=== PATIENT | female | born 1965 | race Caucasian/White ===

== ENCOUNTER → 2017-04-18 20:28 | Emergency (ER) | payer SELFPAY ==
[~2017-04-18 20:28] MED LIST: Ibuprofen TAB* 600 MG ONE; Ibuprofen TAB* 600 MG PO ONE
--- NOTE | 2017-04-18 20:54 | ED ---
Back Pain - HPI Summary HPI Summary: Pt here w/ fall backward while sitting on gliding bench. She did not hit her head and no LOC. She does report Rt shoulder pain, worse w/ movement, and mid back pain. No trouble breathing and pain is not worse w/ deep breath. Denies LEN[place] , change in vision, neck pain, photosensitivity, phonophobia, confusion, N/V, ab pain, numbness, tingling or weakness. No other injuries to report at this time. - History of Current Complaint Chief Complaint: EDBackInjuryPain Stated Complaint: FALL/BACK PAIN Time Seen by Provider: 04/18/17 20:52 Hx Obtained From: Patient Hx Last Menstrual Period: IRREG Pain Intensity: 7 - Allergies/Home Medications Allergies/Adverse Reactions: Allergies Allergy/AdvReac Type Severity Reaction Status Date / Time No Known Allergies Allergy Verified 10/30/16 22:16 PMH/Surg Hx/FS Hx/Imm Hx Previously Healthy: Yes Endocrine/Hematology History: Denies: Hx Anticoagulant Therapy, Hx Blood Disorders, Hx Diabetes, Hx Thyroid Disease Cardiovascular History: Reports: Hx Hypertension Respiratory History: Denies: Hx Asthma, Hx Chronic Obstructive Pulmonary Disease (COPD) GI History: Denies: Hx Ulcer - Cancer History Hx Chemotherapy: No Hx Radiation Therapy: No - Surgical History Surgery Procedure, Year, and Place: C section x1 Infectious Disease History: No Infectious Disease History: Denies: Hx Clostridium Difficile, Hx Hepatitis, Hx Human Immunodeficiency Virus (HIV), Hx of Known/Suspected MRSA, Hx Shingles, Hx Tuberculosis, Hx Known/ Suspected VRE, Hx Known/Suspected VRSA, History Other Infectious Disease, Traveled Outside the [place] in Last 30 Days - Family History Known Family History: Negative: Blood Disorder - Social History Occupation: Employed Full-time Alcohol Use: None Hx Substance Use: No Substance Use Type: Reports: None Smoking Status (MU): Former Smoker Type: Cigarettes Have You Smoked in the Last Year: No Review of Systems Constitutional: Negative Negative: Fatigue Eyes: Negative Negative: Photophobia, Blurred Vision, Diplopia ENT: Negative Negative: Epistaxis, Dental Pain Cardiovascular: Negative Negative: Chest Pain Respiratory: Negative Negative: Shortness Of Breath Gastrointestinal: Negative Negative: Abdominal Pain, Vomiting, Nausea Positive: no symptoms reported. Negative: incontinence Musculoskeletal: Other - see HPI Skin: Negative Negative: Bruising Neurological: Negative Negative: Headache, Weakness, Paresthesia, Numbness, Syncope, Slurred Speech Psychological: Normal All Other Systems Reviewed And Are Negative: Yes Physical Exam Triage Information Reviewed: Yes Vital Signs On Initial Exam: Initial Vitals Temp Pulse Resp BP Pulse Ox 98.7 F 85 16 137/75 99 04/18/17 20:41 04/18/17 20:41 04/18/17 20:41 04/18/17 20:41 04/18/17 20:41 Vital Signs Reviewed: Yes Appearance: Positive: Well-Appearing, No Pain Distress, Well-Nourished Skin: Positive: Warm, Dry - no erythema, no ecchymosis over back or shoulder Head/Face: Positive: Normal Head/Face Inspection - NTTP, no gross deformity Eyes: Positive: Normal, EOMI, WILLY, Conjunctiva Clear ENT: Positive: Hearing grossly normal Dental: Negative: Dental Fracture @ Neck: Positive: Supple, Nontender Respiratory/Lung Sounds: Positive: Clear to Auscultation, Breath Sounds Present. Negative: Subcutaneous Emphysema, Tracheal Deviation Cardiovascular: Positive: Normal, RRR, Pulses are Symmetrical in both Upper and Lower Extremities Abdomen Description: Positive: Nontender, Soft Bowel Sounds: Positive: Present Musculoskeletal: Positive: Strength/ROM Intact, Pain @ - thoracic spinous pp and paraspinal mm are TTP - no margarito crepitus or defromity appreciated; Rt shoulder w/ FROM - sore to move and humeral head TTP; FROM cervical spine and LE 's/lumbar spine w/o difficulty Neurological: Positive: Normal, Sensory/Motor Intact, Alert, Oriented to Person Place, Time, CN Intact II-III Psychiatric: Positive: Normal Diagnostics - Vital Signs Vital Signs Temp Pulse Resp BP Pulse Ox 04/18/17 20:41 98.7 F 85 16 137/75 99 - Laboratory Lab Statement: Any lab studies that have been ordered have been reviewed, and results considered in the medical decision making process. Back Pain Course/Dx - Course Course Of Treatment: Pt presents w/ falling backward from rocking/gliding bench. Sore in Rt shoulder and mid back. XR's reveal no acute injury here however pt may have sprained ligaments in these areas. Functionally, she is performing well. Discussed pain control and tissue healing. No s/sx of head/ neck injury. She will f/u w/ PCP. Reviewed danger s/sx of when to return to ED. - Diagnoses Provider Diagnoses: Fall from chair, Multiple sprains Discharge - Discharge Plan Condition: Stable Disposition: HOME Patient Education Materials: Muscle Strain (ED), Contusion in Adults (ED) Forms: *Work Release Referrals: Sayda Davis MD [Primary Care Provider] - Additional Instructions: You appear to have contusion and muscle strain since falling. It is advised that you ice your injuries and gently stretch to prevent stiffness. You may take ibuprofen alternating with acetaminophen for pain. You may also try topical analgesic rubs/patches (ie. briofreeze, bengay, salonpas, etc). Follow-up with PCP this week if pain persists or worsens. Call tomorrow to schedule an appointment.
--- NOTE | 2017-04-18 21:42 | RAD ---
INDICATION: Right shoulder pain COMPARISON: None. TECHNIQUE: 4 views of the right shoulder were obtained. FINDINGS: The adequately corticated bones are in normal alignment. Joint spaces appear maintained. No fracture, dislocation or focal bony abnormality is seen. IMPRESSION: Normal radiograph of the right shoulder. If the patient's symptoms persist, follow-up imaging is recommended.
--- NOTE | 2017-04-18 21:43 | RAD ---
INDICATION: Back pain COMPARISON: Chest x-ray dated May 11, 2014 TECHNIQUE: 3 views of the thoracic spine were obtained. FINDINGS: The vertebra are in normal alignment. No fracture is seen. Disc spaces appear maintained. . IMPRESSION: No evidence of fracture or subluxation.
[2017-04-18 22:25] VITALS: BP 154/85
== END | disposition home or self-care (01) ==
LOC: ED 20:28
DX: T14.8 Other injury of unspecified body region (principal); W19.XXXA Unspecified fall, initial encounter; Y92.9 Unspecified place or not applicable; Z87.891 Personal history of nicotine dependence; I10 Essential (primary) hypertension
CPT/HCPCS: 72070; 99282; A9270-GY

== ENCOUNTER 2018-06-29 22:44 | Inpatient (IN) | payer SELFPAY ==
[2018-06-29] MEDS ORDERED: NS 0.9% 1000 ML* 1,000 ML IV ONE (22:46)
[2018-06-29] MEDS ORDERED: Etomidate* 2 MG/ML 20 ML VIAL (40 MG) ONE (23:02)
[2018-06-29] MEDS ORDERED: Succinylcholine* 20 MG/ML 10 ML VIAL ONE (23:03)
[2018-06-29] MEDS ORDERED: Mannitol 25% (12.5 GM) 50 ML* 12.5 GM/50 ML VIAL IVPB ONE (23:07)
[2018-06-29] MEDS ORDERED: Labetalol IV* 5 MG/ML 20 ML VIAL IV PUSH ONE (23:11)
[2018-06-29] MEDS ORDERED: levETIRAcetam IV* 500 MG/5 ML VIAL ONE (23:33)
--- NOTE | 2018-06-29 23:42 | ED ---
Headache - HPI Summary HPI Summary: This is tatiana Christopher documenting for attending Dr. Estevan Jennings MD. Pt is 52 y/o F who is BIBA to ED. Complete HPI is unobtainable due to level 5 Caveat of altered mental status. EMS reports that her boyfriend called them due to pt having a sudden onset headache while she was in the shower and vomiting brown liquid. She lost consciousness while in the shower and she was unresponsive for a short time, but then she was able to put on a shirt though she has been AMS the whole time. Boyfriend reports to EMS that shes been having a lot of headaches lately and that shes been lethargic. He reports no alcohol or drug use. EMS also says that she is hypertensive. - History Of Current Complaint Stated Complaint: UNRESPONSIVE Time Seen by Provider: 06/29/18 22:48 Hx Obtained From: Family/Director Of Housing, EMS Hx From Patient Unobtainable Due To: Altered Mental Status Onset/Duration: Sudden Onset - Allergies/Home Medications Allergies/Adverse Reactions: Allergies Allergy/AdvReac Type Severity Reaction Status Date / Time No Known Allergies Allergy Verified 06/30/18 09:40 Home Medications: Home Medications Unobtainable 06/30/18 [History Confirmed 06/30/18] PMH/Surg Hx/FS Hx/Imm Hx Infectious Disease History: Denies: Traveled Outside the [place] in Last 30 Days - Additional Comments History Additional Comments: PMHx, FHx, PSHx unobtainable due to level 5 caveat of AMS. Review of Systems - ROS Summary Review of Systems Summary: Complete ROS unobtainable due to level 5 caveat of Altered mental status Positive: Vomiting Positive: Headache All Other Systems Reviewed And Are Negative: Yes Physical Exam - Summary Physical Exam Summary: VITAL SIGNS: Reviewed. GENERAL: Patient is a well-developed and nourished female who is lying comfortable in the stretcher. Patient is not in any acute respiratory distress. HEAD AND FACE: No signs of trauma. No ecchymosis, hematomas or skull depressions. No sinus tenderness. EYES: pupils are equal and rounded, EOMI x 2, No injected conjunctiva, no nystagmus. EARS: Hearing grossly intact. Ear canals and tympanic membranes are within normal limits. MOUTH: Oropharynx within normal limits. NECK: Supple, trachea is midline, no adenopathy, no JVD, no carotid bruit, no c- spine tenderness, neck with full ROM. CHEST: Vomit on chest. Symmetric, no tenderness at palpation LUNGS: Clear to auscultation bilaterally. No wheezing or crackles. CVS: Regular rate and rhythm, S1 and S2 present, no murmurs or gallops appreciated. ABDOMEN: Soft, non-tender. No signs of distention. No rebound no guarding, and no masses palpated. Bowel sounds are normal. EXTREMITIES: Moves extremities nonpurposefully. FROM in all major joints, no edema, no cyanosis or clubbing. NEURO: Alert but incoherent. Does not follow commands. SKIN: Dry and warm Triage Information Reviewed: Yes Vital Signs Reviewed: Yes Procedures - Intubation Time of Intubation: 23:20 Intubation Method: orotracheal Tube Size (cm): 7.5 Medications: Succinylcholine - Atomidate Breath Sounds after Intubation: equal Intubation Complications: no complications Post Intubation Xray: Yes Diagnostics - Laboratory Result Diagrams: 06/30/18 15:40 06/30/18 15:40 Lab Statement: Any lab studies that have been ordered have been reviewed, and results considered in the medical decision making process. - Radiology CXR Radiology Interpretation Completed By: ED Physician - ETT level of clavicle. No acute pathology. Pending official report. - CT CT Head w/o IV contrast CT Interpretation Completed By: Radiologist - IMPRESSION: 1. Left peripheral parenchymal hematoma involving the left temporal and occipital lobe in which there is a significant subfalcine shift from left to right by 1.2 cm. 2. Left subdural hematoma involving the left anterior and middle cranial fossa. There are both acute and subacute components. 3. Effacement of the left lateral ventricle with a dilated right temporal horn and occipital horn consistent with a trapped right lateral ventricle. 4. Decrease in the density of the pontine isthmus and mid brain. ED Physician reviewed this report. - EKG 00:56 Cardiac Rate: NL - 76 bpm EKG Interpretation: Normal axis. Normal interval. No ischemic changes. Headache Course/Dx - Course Course Of Treatment: Pt is 52 y/o F who is BIBA to ED. Level 5 Caveat due to AMS. EMS reports that boyfriend called them due to pt having a sudden onset headache while she was in the shower and vomiting brown liquid. She lost consciousness while in the shower and she was unresponsive for a short time, but then she was able to put on a shirt, but still AMS the whole time. Boyfriend reports to EMS that shes been having a lot of headaches lately and that shes been lethargic. He reports no alcohol or drug use. EMS also says that she is hypertensive. Physical exam revealed that she was alert, incoherent , not able to follow commands, had vomit on her chest, pupils were equal and rounded, and she moved extremities non-purposefully. GCS of 9. Pt was sedated with propofol. Pt was rushed to CAT scan immediately which showed intracranial hemorrhage. Head CT showed left peripheral parenchymal hematoma involving the left temporal and occipital lobe in which there is a significant subfalcine shift from left to right by 1.2 cm, left subdural hematoma involving the left anterior and middle cranial fossa, effacement of the left lateral ventricle with a dilated right temporal horn and occipital horn consistent with a trapped right lateral ventricle, and a decrease in the density of the pontine isthmus and mid brain. ED Physician reviewed this report and agrees. Pt was intubated around 23:20 with 7.5 cm tube with orotracheal method and no complications. EKG at 00:56 shows normal axis, normal interval, and no ischemic changes at 76 bpm. CXR showed ETT level of clavicle and no acute pathology, pending official report. Lactic acid levels were 5.8 mmol/L. In the ED course pt was given Propofol, fluids, Mannitol, Labetalol, Keppra, and Tylenol. Spoke with Dr. Plaza who recommended pt go to OR and he came down to see pt. At 01:00 Dr. Plaza had a long discussion with pts daughter and boyfriend who decided they dont want pt to go for surgery and instead want her admitted to ICU. At 01 :30 pts family decided to make pt DNR and pts daughter Di Dukes signed DNR form. Pt diagnosed with intracranial hemorrhage and guarded. She was admitted to ICU. - Diagnoses Provider Diagnoses: Intracranial hemorrhage, In guarded condition - Physician Notifications Discussed Care Of Patient With: Gilda Plaza Time Discussed With Above Provider: 23:11 Instructed by Provider To: Other - Recommended pt go to OR and he came down to see pt. at 01:00 Dr. Plaza said he had a long discussion with pt's daughter and boyfriend who decided they don't want pt to go for surgery and instead want her admitted to ICU. - Critical Care Time Critical Care Time: 30-74 min Discharge - Sign-Out/Discharge Documenting (check all that apply): Patient Departure - Admit - Discharge Plan Condition: Disposition: ADMITTED TO [facility]
[2018-06-29] MEDS ORDERED: levETIRAcetam IV* 1,000 MG in NS 0.9% 100 ML* 100 ML IVPB SCH (23:45)
[2018-06-29] MEDS ORDERED: Propofol* 500 MG/50 ML BTL IV SCH (23:45)
[2018-06-29 23:52] LABS: ABS Basophils 0 10^3/ul (0-0.2); ABS Eosinophils 0.1 10^3/ul (0-0.6); ABS Lymphocytes 3.3 10^3/ul (1.0-4.8); ABS Neutrophils 16.1 10^3/ul (1.5-7.7); ABS Nucleated RBC 0 10^3/ul; Eosinophil % 0.6 % (0-6); Hematocrit 43 % (35-47); Hemoglobin 14.4 g/dl (12.0-16.0); Lymphocyte % 15.8 % (25-47); Mean Corpuscular HGB Conc 34 g/dl (31-36); Mean Corpuscular Hemoglobin 29 pg (27-31); Mean Corpuscular Volume 85 fL (80-97); Mean Platelet Volume 9.4 um3 (7.4-10.4); Nucleated Red Blood Cells % 0.1; Platelet Count 407 10^3/ul (150-450); Red Blood Count 5.05 10^6/ul (4.00-5.40); Red Cell Distribution Width 14 % (10.5-15); White Blood Count 20.6 10^3/ul (3.5-10.8)
[2018-06-30] MEDS ORDERED: Labetalol IV* 5 MG/ML 20 ML VIAL ONE
[2018-06-30 00:08] LABS: EGFR Non-African American 76.1 (>60)
[2018-06-30 00:16] LABS: Urine Appearance Clear; Urine Blood 2+ (Negative); Urine Color Straw; Urine Ketones Trace (Negative); Urine Protein 2+(100 mg/dL) (Negative); Urine Red Blood Cell 3+(>10/hpf) (Absent); Urine Specific Gravity 1.011 (1.010-1.030); Urine Urobilinogen Negative (Negative); Urine White Blood Cell Trace(0-5/hpf) (Absent)
[2018-06-30] MEDS ORDERED: Mannitol 25% (12.5 GM) 50 ML* 12.5 GM/50 ML VIAL ONE (00:20)
[2018-06-30] MEDS ORDERED: Thrombin 5,000 UNITS* 1 APPLIC KIT - topical use - TOPICAL ONE (00:20)
[2018-06-30] MEDS ORDERED: Bacitracin IV* 50,000 UNITS INJ ONE (00:20)
[2018-06-30] MEDS ORDERED: Lidocain 1% EPI 1:100,000 * 30 ML MDV ONE (00:20)
[2018-06-30 00:23] LABS: INR 0.9 (0.77-1.02)
[2018-06-30] MEDS ORDERED: Bacitracin OINTMENT* 0.5% 0.5 oz TUBE ONE (00:38)
[2018-06-30] MEDS ORDERED: Iodixanol* (CONTRAST) 320 MG/ML 100 ML SDV IV ONE (00:39)
--- NOTE | 2018-06-30 01:52 | HP ---
H&P (Free Text) History and Physical: PCP: none Date/Time: 06/30/2018 0125 CC: headache, lethargy HPI: Mrs Castellanos is a 52YO female presenting via EMS from home where she was in the shower and experienced sudden onset of headache & N/V with subsequent syncope. She did rouse and was able to assist getting dressed before becoming lethargic and unresponsive. She was intubated on arrival and code perea protocol followed. CT head WO was read as parenchymal ICH with significant shift & subdural hematoma. Zacarias Plaza MD neurosurgery was consulted and offered surgery, but based on the anticipated post-op survival and substantial disability, her family opted to forego surgery and make her a DNR. She was given 12.5g mannitol IV, loaded with 1g levetiracetam, & PRN labetalol for HTN. I have discussed with her daughter, Di, what her mother's wishes would have been regarding living with the anticipated significant disability. We discussed continued medical management to support her vital organs, potential organ donation should she progress to brain , and the option for terminal extubation. PMedHx headaches HTN Medications: unknown NKDA PSurgHx none known SocHx: former smoker, rare alcohol, no recreational drugs; lives with boyfriend ; DNR code status FamHx: adopted, unknown ROS: as above, otherwise reviewed and all were negative vitals: Vital Signs Temp 36.8 C 06/29/18 22:45 Pulse 96 06/30/18 01:03 Resp 14 06/29/18 22:45 BP 170/87 06/30/18 01:03 Pulse Ox 99 06/30/18 01:03 Intake & Output 06/29/18 06/29/18 06/30/18 11:59 23:59 11:59 Weight 73.936 kg Constitutional: NAD, normally developed, overweight white female HEENM: atraumatic; sclera/conjunctiva: anicteric/clear; fundi: ; auricles: normal; oropharynx: intubated, mucosa moist Neck: soft tissue: no mass; thyroid: normal Pulmonary: clear to auscultation bilaterally, good aeration, no accessory muscle use CV: RR/RR, normal S1S2, no carotid bruit, no jugular venous distention, 2+ B DP/ PT, no edema Abdominal: soft, non-distended, non-tender, no rebound/guarding/rigidity, normoactive bowel sounds, no hepatosplenomegaly or masses, no costovertebral angle tenderness Musculoskeletal: general: grossly intact; gait: currently non-ambulatory Integumental: normal appearance and texture Neurological cranial nerves II: unable to assess visual reyes III/IV/: light reflex, unable to assess EOMI, R pupil 3mm/fixed, L pupil 5mm/ fixed V: absent corneal reflex, unable to assess facial sensation or mastication VII: intact facial symmetry, unable to assess eye clench VIII: unable to assess hearing IX/X: unable to assess palatal motion, gag reflex, or dysarthria XI: unable to assess shoulder shrug, no trapezius atrophy XII: unable to assess tongue protrusion & voice articulation motor: decerebrate posturing B LUE: unable to assess RUE: unable to assess LLE: unable to assess RLE: unable to assess coordination finger/nose: unable to assess heal/pedraza: unable to assess dysdiadochokinesia: unable to assess sensory crude touch: unable to assess pinprick: unable to assess vibration: unable to assess proprioception: unable to assess DTRs biceps: 1+ B triceps: 1+ B brachioradialis: 1+ B patellar: 2+ B, brisk Achilles: trace B Babinski: upgoing B Psychiatric orientation: GCS 3 affect: obtunded mood: acquiescent eye contact: absent content: absent memory: unable to assess responses: absent insight: absent Testing: Lab Results 06/29/18 06/29/18 06/29/18 Range/Units 23:15 23:15 23:15 WBC 20.6 H (3.5-10.8) 10^3/ul RBC 5.05 (4.00-5.40) 10^6/ul Hgb 14.4 (12.0-16.0) g/dl Hct 43 (35-47) % MCV 85 (80-97) fL MCH 29 (27-31) pg MCHC 34 (31-36) g/dl RDW 14 (10.5-15) % Plt Count 407 (150-450) 10^3/ul MPV 9.4 (7.4-10.4) um3 Neut % (Auto) 78.5 (38-83) % Lymph % (Auto) 15.8 L (25-47) % Brantley % (Auto) 4.9 (0-7) % Eos % (Auto) 0.6 (0-6) % Baso % (Auto) 0.2 (0-2) % Absolute Neuts (auto) 16.1 H (1.5-7.7) 10^3/ul Absolute Lymphs (auto) 3.3 (1.0-4.8) 10^3/ul Absolute Monos (auto) 1.0 H (0-0.8) 10^3/ul Absolute Eos (auto) 0.1 (0-0.6) 10^3/ul Absolute Basos (auto) 0 (0-0.2) 10^3/ul Absolute Nucleated RBC 0 10^3/ul Nucleated RBC % 0.1 INR (Anticoag Therapy) 0.90 (0.77-1.02) APTT 29.7 (26.0-36.3) seconds Patient Temperature ABG pH (7.35-7.45) ABG pH (Temp Correct) ABG pCO2 (35-45) mmHg ABG pCO2 (Temp Corrct ABG pO2 (80-100) mmHg ABG pO2 (Temp Correct ABG HCO3 (19-31) mmol/L ABG O2 Saturation (95-98) % ABG Base Excess (-2.0-2.0) Respiration Rate Ventilator Type Vent Mode Inspiratory Time PEEP Pressure Support Pressure Control EPAP IPAP BiPAP Sodium (135-145) mmol/L Potassium Chloride (101-111) mmol/L Carbon Dioxide (22-32) mmol/L Anion Gap (2-11) mmol/L BUN (6-24) mg/dL Creatinine (0.51-0.95) mg/dL Est GFR ( Amer) (>60) Est GFR (Non-Af Amer) (>60) BUN/Creatinine Ratio (8-20) Glucose (70-100) mg/dL Lactic Acid (0.5-2.0) mmol/L Calcium (8.6-10.3) mg/dL Total Bilirubin (0.2-1.0) mg/dL AST ALT (7-52) U/L Alkaline Phosphatase (34-104) U/L Troponin I (<0.04) ng/mL Total Protein (6.4-8.9) g/dL Albumin (3.2-5.2) g/dL Globulin (2-4) g/dL Albumin/Globulin Ratio (1-3) Triglycerides mg/dL Cholesterol mg/dL LDL Cholesterol mg/dL LDL Cholesterol Direct mg/dL HDL Cholesterol mg/dL Urine Color Straw Urine Appearance Clear Urine pH 7.0 (5-9) Ur Specific Himrod 1.011 (1.010-1.030) Urine Protein 2+(100 mg/dl) A (Negative) Urine Ketones Trace A (Negative) Urine Blood 2+ A (Negative) Urine Nitrate Negative (Negative) Urine Bilirubin Negative (Negative) Urine Urobilinogen Negative (Negative) Ur Leukocyte Esterase Negative (Negative) Urine WBC (Auto) Trace(0-5/hpf) (Absent) Urine RBC (Auto) 3+(>10/hpf) A (Absent) Urine Bacteria Absent (Absent) Urine Glucose 2+(150 mg/dl) A (Negative) Blood Type Antibody Screen Crossmatch 06/29/18 06/29/18 06/29/18 Range/Units 23:15 23:15 23:15 WBC (3.5-10.8) 10^3/ul RBC (4.00-5.40) 10^6/ul Hgb (12.0-16.0) g/dl Hct (35-47) % MCV (80-97) fL MCH (27-31) pg MCHC (31-36) g/dl RDW (10.5-15) % Plt Count (150-450) 10^3/ul MPV (7.4-10.4) um3 Neut % (Auto) (38-83) % Lymph % (Auto) (25-47) % Brantley % (Auto) (0-7) % Eos % (Auto) (0-6) % Baso % (Auto) (0-2) % Absolute Neuts (auto) (1.5-7.7) 10^3/ul Absolute Lymphs (auto) (1.0-4.8) 10^3/ul Absolute Monos (auto) (0-0.8) 10^3/ul Absolute Eos (auto) (0-0.6) 10^3/ul Absolute Basos (auto) (0-0.2) 10^3/ul Absolute Nucleated RBC 10^3/ul Nucleated RBC % INR (Anticoag Therapy) (0.77-1.02) APTT (26.0-36.3) seconds Patient Temperature ABG pH (7.35-7.45) ABG pH (Temp Correct) ABG pCO2 (35-45) mmHg ABG pCO2 (Temp Corrct ABG pO2 (80-100) mmHg ABG pO2 (Temp Correct ABG HCO3 (19-31) mmol/L ABG O2 Saturation (95-98) % ABG Base Excess (-2.0-2.0) Respiration Rate Ventilator Type Vent Mode Inspiratory Time PEEP Pressure Support Pressure Control EPAP IPAP BiPAP Sodium 134 L (135-145) mmol/L Potassium TNP Chloride 99 L (101-111) mmol/L Carbon Dioxide 20 L (22-32) mmol/L Anion Gap 15 H (2-11) mmol/L BUN 15 (6-24) mg/dL Creatinine 0.79 (0.51-0.95) mg/dL Est GFR ( Amer) 92.1 (>60) Est GFR (Non-Af Amer) 76.1 (>60) BUN/Creatinine Ratio 19.0 (8-20) Glucose 206 H (70-100) mg/dL Lactic Acid 5.8 H* (0.5-2.0) mmol/L Calcium 8.8 (8.6-10.3) mg/dL Total Bilirubin 0.30 (0.2-1.0) mg/dL AST TNP ALT 10 (7-52) U/L Alkaline Phosphatase 100 (34-104) U/L Troponin I 0.01 (<0.04) ng/mL Total Protein 8.2 (6.4-8.9) g/dL Albumin 4.3 (3.2-5.2) g/dL Globulin 3.9 (2-4) g/dL Albumin/Globulin Ratio 1.1 (1-3) Triglycerides 677 mg/dL Cholesterol 236 mg/dL LDL Cholesterol mg/dL LDL Cholesterol Direct 114 mg/dL HDL Cholesterol 34.0 mg/dL Urine Color Urine Appearance Urine pH (5-9) Ur Specific Himrod (1.010-1.030) Urine Protein (Negative) Urine Ketones (Negative) Urine Blood (Negative) Urine Nitrate (Negative) Urine Bilirubin (Negative) Urine Urobilinogen (Negative) Ur Leukocyte Esterase (Negative) Urine WBC (Auto) (Absent) Urine RBC (Auto) (Absent) Urine Bacteria (Absent) Urine Glucose (Negative) Blood Type O Positive Antibody Screen Negative Crossmatch See Detail 06/30/18 06/30/18 Range/Units 00:05 01:03 WBC (3.5-10.8) 10^3/ul RBC (4.00-5.40) 10^6/ul Hgb (12.0-16.0) g/dl Hct (35-47) % MCV (80-97) fL MCH (27-31) pg MCHC (31-36) g/dl RDW (10.5-15) % Plt Count (150-450) 10^3/ul MPV (7.4-10.4) um3 Neut % (Auto) (38-83) % Lymph % (Auto) (25-47) % Brantley % (Auto) (0-7) % Eos % (Auto) (0-6) % Baso % (Auto) (0-2) % Absolute Neuts (auto) (1.5-7.7) 10^3/ul Absolute Lymphs (auto) (1.0-4.8) 10^3/ul Absolute Monos (auto) (0-0.8) 10^3/ul Absolute Eos (auto) (0-0.6) 10^3/ul Absolute Basos (auto) (0-0.2) 10^3/ul Absolute Nucleated RBC 10^3/ul Nucleated RBC % INR (Anticoag Therapy) (0.77-1.02) APTT (26.0-36.3) seconds Patient Temperature Not Reportable ABG pH 7.40 (7.35-7.45) ABG pH (Temp Correct) Not Reportable ABG pCO2 32 L (35-45) mmHg ABG pCO2 (Temp Corrct Not Reportable ABG pO2 201 H (80-100) mmHg ABG pO2 (Temp Correct Not Reportable ABG HCO3 21.8 (19-31) mmol/L ABG O2 Saturation 98.0 (95-98) % ABG Base Excess -4.0 L (-2.0-2.0) Respiration Rate 20 Ventilator Type 500 Vent Mode Cmv Inspiratory Time Not Reportable PEEP 5 Pressure Support Not Reportable Pressure Control Not Reportable EPAP Not Reportable IPAP Not Reportable BiPAP Not Reportable Sodium (135-145) mmol/L Potassium 3.3 L Chloride (101-111) mmol/L Carbon Dioxide (22-32) mmol/L Anion Gap (2-11) mmol/L BUN (6-24) mg/dL Creatinine (0.51-0.95) mg/dL Est GFR ( Amer) (>60) Est GFR (Non-Af Amer) (>60) BUN/Creatinine Ratio (8-20) Glucose (70-100) mg/dL Lactic Acid (0.5-2.0) mmol/L Calcium (8.6-10.3) mg/dL Total Bilirubin (0.2-1.0) mg/dL AST 19 ALT (7-52) U/L Alkaline Phosphatase (34-104) U/L Troponin I (<0.04) ng/mL Total Protein (6.4-8.9) g/dL Albumin (3.2-5.2) g/dL Globulin (2-4) g/dL Albumin/Globulin Ratio (1-3) Triglycerides mg/dL Cholesterol mg/dL LDL Cholesterol mg/dL LDL Cholesterol Direct mg/dL HDL Cholesterol mg/dL Urine Color Urine Appearance Urine pH (5-9) Ur Specific Himrod (1.010-1.030) Urine Protein (Negative) Urine Ketones (Negative) Urine Blood (Negative) Urine Nitrate (Negative) Urine Bilirubin (Negative) Urine Urobilinogen (Negative) Ur Leukocyte Esterase (Negative) Urine WBC (Auto) (Absent) Urine RBC (Auto) (Absent) Urine Bacteria (Absent) Urine Glucose (Negative) Blood Type Antibody Screen Crossmatch ECG, personally reviewed: NSR rate 76, no ischemia; no comparison CXR, personally reviewed: intubated w/ ET tube in good position, no acute process CT brain WO, personally reviewed: IMPRESSION: 1. Left peripheral parenchymal hematoma involving the left temporal and occipital lobe in which there is a significant subfalcine shift from left to right by 1.2cm 2. Left subdural hematoma involving the left anterior and middle cranial fossa. There are both acute and subacute components. 3. Effacement of the left lateral ventricle with a dilated right temporal horn and occipital horn consistent with a trapped right lateral ventricle. 4. Decrease in the density of the pontine isthmus and mid brain. Impression: 52F presenting with lethargy after onset of headache found to have a catastrophic intra-cranial hemorrhage, family declining surgical intervention ; call out to game protector Neurologic catastrophic intra-cranial hemorrhage : family declined neurosurgical intervention, Zacarias Plaza MD consulted in ED : support blood pressure & profusion : propofol sedation as needed : anticipate brain evaluation 24-72H : possible organ donation, [place] contacted : seizure precautions : loaded with 1g levetiracetam in ED, continue 500mg IV BID Cardiovascular episodic bradycardia : dopamine GTT, if needed : maintain systolic <180 & MAP >65 Pulmonary acute respiratory failure 2nd ICH : mechanical ventilation Infectious Disease No infectious burden suspected Gastroenterology GI prophylaxis : IV pantoprazole Renal No acute issues : eller for accurate renal monitoring/I&Os & prevention of skin breakdown Lines : ET : OG : L anticubial IV : R forearm IV : R wrist IV : eller Admission Rational: inpatient for catastrophic ICH management in ICU, possible organ donation DVTp: SCDs, no anticoagulation in setting of acute hemorrhage Code Status: DNR HCP: Di pitts Critical Care time: 120minutes with >50% spent at the bedside obtaining a history, performing the examination, advising of diagnosis & treatment options along with risks/benefits/reasoning; remainder spent discussing with ER MD, reviewing labs and radiology exams
[2018-06-30] MEDS ORDERED: Labetalol IV* 5 MG/ML 20 ML VIAL IV PUSH ONE ×3 (02:17→02:21)
[2018-06-30] MEDS ORDERED: Acetaminophen SUPP* 650 MG SUPP PR PRN (02:32)
[2018-06-30] MEDS ORDERED: NS 0.9% 1000 ML* 1,000 ML IV SCH (02:45)
[2018-06-30] MEDS ORDERED: Propofol* 100 ML IV SCH (03:00)
[2018-06-30] MEDS ORDERED: hydrALAZINE IV* 20 MG/ML VIAL IV PRN (04:05)
[2018-06-30] MEDS ORDERED: hydrALAZINE IV* 20 MG/ML VIAL ONE (04:18)
[2018-06-30 05:09] LABS: Hematocrit 41 % (35-47); Hemoglobin 13.8 g/dl (12.0-16.0); Mean Corpuscular HGB Conc 34 g/dl (31-36); Mean Corpuscular Hemoglobin 29 pg (27-31); Mean Corpuscular Volume 84 fL (80-97); Mean Platelet Volume 8.4 um3 (7.4-10.4); Platelet Count 328 10^3/ul (150-450); Red Blood Count 4.83 10^6/ul (4.00-5.40); Red Cell Distribution Width 14 % (10.5-15); White Blood Count 23.4 10^3/ul (3.5-10.8)
[2018-06-30 05:10] LABS: ABS Basophils 0 10^3/ul (0-0.2); ABS Eosinophils 0 10^3/ul (0-0.6); ABS Lymphocytes 1.6 10^3/ul (1.0-4.8); ABS Monocytes 1.3 10^3/ul (0-0.8); ABS Neutrophils 20.4 10^3/ul (1.5-7.7); ABS Nucleated RBC 0 10^3/ul
[2018-06-30 05:25] LABS: EGFR Non-African American 82.1 (>60)
[2018-06-30 05:47] LABS: Eosinophil % 0.1 % (0-6); Lymphocyte % 6.9 % (25-47); Nucleated Red Blood Cells % 0
[2018-06-30] MEDS: Chlorhexidine MOUTHWASH 0.12%* 15 ML UDC TOPICAL SCH ×4 (07:34→16:27)
--- NOTE | 2018-06-30 08:15 | CONS ---
CONSULTATION NOTE: DATE OF CONSULT: 06/30/18 HISTORY OF PRESENT ILLNESS: The patient is a very pleasant 52-year-old female who was seen in the emergency room at the request of the emergency room physician because of CT scan finding consistent with a large left parietooccipital intracranial hemorrhage with left subdural hematoma and midline shift. The patient was reported have episodes of headache prior to her transfer to the emergency room. She started having excessive nausea and vomiting and gradually became less responsive. She was transferred to the emergency room by ambulance. On arrival, she was found to be hypertensive as well as moving all extremities non-purposely. She was intubated and she was found to have a large left-sided intraparenchymal hematoma with midline shift. The patient's history was obtained from the patient's records as well as the patient's significant other who accompanied her at this visit; shortly her daughter and son-in-law came to the emergency room. The patient is working at [employer] and she has other children. PAST MEDICAL HISTORY: Largely unknown. Per the patient's daughter, the patient has not seen a physician for several years. PAST SURGICAL HISTORY: Unknown. MEDICATIONS: The patient reportedly does not take any medications. ALLERGIES: Unknown. SOCIAL HISTORY: Tobacco: Negative. Alcohol: Negative. Recreational drug use : Negative. PHYSICAL EXAMINATION: The patient is intubated. She was given propofol earlier , but was held for the examination. The patient does not open her eyes to verbal or painful stimuli. She is intubated. She does not follow commands. She would extend upper and lower extremities to pain. She grimaces to pain on all extremities. Her pupils are 6 mm on the left, 4 mm on the right and sluggish. She does have cornea and gag reflex, both of them are weak. DIAGNOSTIC STUDIES/LAB DATA: The patient had a CT scan of the brain revealing a large intraparenchymal hematoma at the left parietooccipital lobe and also a component of left temporal lobe. The patient had a left frontotemporal subdural hematoma with significant [id number] midline shift, compression of the left ventricle of the cerebrum and the patient also has a right lateral ventricle. The patient also has hypodense signal at the area of her russ. The patient also had a CTA of the brain with similar findings, without obvious arteriovenous malformation. ASSESSMENT: The patient is a pleasant 52-year-old right-handed female with altered mental status, with a large left intraparenchymal hematoma and left subdural hematoma. PLAN: The patient at this point has significant amount of midline shift and signs of increased intracranial pressure. She was given mannitol in the emergency room. We discussed with the patient's family, with her daughter and son-in-law, as well as her significant other regarding surgical and nonsurgical options, offering as a first option a surgical decompressive craniectomy with evacuation of intracranial hemorrhage. The patient' family understood the risks and benefits of the procedure as well as possible expectations, limitations, possible complication of the procedure, understanding that her prognosis is very poor even with surgery and possible clinical outcome without surgical intervention. The patient's ICH score is 4 that carries a mortality of 72%. Because of the patient's condition and her wishes, the family decided against surgical intervention in the form of craniotomy/craniectomy or placement of ventriculostomy. Understanding of possible outcome of the decision regarding permanent neurological deficits and , the patient's prognosis is going to be poor, family decided to go ahead with medical management for now and the patient will be admitted to intensive care unit. I will prophylaxis for 7 days, avoid hyponatremia and avoid hypotension, and medical management of the patient's condition. Full instructions were given to the patient's family. We discussed in detail regarding possible grave outcome. Thank you for allowing us to participate in the care of this patient. Please do not hesitate to contact our office in case you have any further questions or concerns regarding the care of this patient. [id number]/[facility] #: [id number] ZION
[2018-06-30] MEDS ORDERED: niCARdipine 0.1MG/ML IVPREMIX* 20 MG/200 ML BAG ONE (08:20)
--- NOTE | 2018-06-30 08:21 | RAD ---
Indication: Respiratory failure. Single frontal portable view of the chest done at 0056 hours demonstrates no mediastinal shift. Heart is of normal size and configuration. ET tube is at the level of the aortic arch. Lung reyes are clear. IMPRESSION: No active cardiopulmonary disease is noted. R0
--- NOTE | 2018-06-30 08:46 | RAD ---
Indication: Intracranial hemorrhage. Contrast: Administered 80.2 ml of VISAPAQUE 320 mg/ml CTA of the neck was performed after IV contrast administration. CTA of the head was also performed. Coronal, sagittal and 3-D reconstructive images were obtained. The origins of the great vessels are unremarkable. The common carotid arteries bilaterally demonstrates no evidence of intimal wall thickening or plaque. Internal carotid arteries are patent with no evidence of carotid artery dissection. No plaque is noted. The vertebral arteries are patent bilaterally. No evidence of plaque is noted. No evidence of vertebral artery dissection is noted. The intracranial circulation demonstrates normal bifurcation of the anterior and middle cerebral artery. No aneurysmal dilatation is noted. No branch occlusion is noted. The posterior circulation demonstrates no evidence of aneurysmal dilatation. No branch occlusion is noted. Large left-sided intraparenchymal hematoma is noted in the left parietal lobe extending to the left occipital lobe. Subdural hemorrhage is noted in the left frontal area. Midline shift to the right is noted approximately 10 mm.. IMPRESSION: No aneurysmal dilatation or dissection of the carotid arteries or vertebral artery. Large parenchymal hemorrhage in the left frontal lobe extending to the left occipital lobe. Moderate degree of central dural hematoma is noted over the left frontal area. Midline shift towards the right of approximately 10 mm is noted. There is likely intraventricular hemorrhage noted.
[2018-06-30] MEDS ORDERED: Pantoprazole IV* 40 MG IV SCH (09:00)
[2018-06-30] MEDS ORDERED: niCARdipine 0.1MG/ML IVPREMIX* 20 MG/200 ML BAG IV SCH (09:00)
--- NOTE | 2018-06-30 09:09 | PN ---
Date of Service: 06/30/18 Critical Care Services: 52F admitted to the ICU with large intracerebral hemorrhage with midline shift. Family elected to make patient DNR and forego aggressive measures after speaking with neurosurgery overnight. 06/30: Patient remains intubated. Became hypertensive and started on cardene drip this AM. Large volume urine output noted. Started on ddavp. Vital Signs: Temp Pulse Resp BP SpO2 FiO2 101.3 F 108 19 113/74 97 35 06/30/18 09:00 06/30/18 09:00 06/30/18 08:00 06/30/18 08:55 06/30/18 09:00 06/30 08:00 Physical Exam: Gen - Intubated and sedated HEENT - NCAT, pupils fixed Neck - no jvd, no thyromegaly CV - s1/s2, tachy Pulm - cta, no wheezes Abd - soft, nt Ext - no cce Neuro - pupils fixed and dilated, +cough, +breathing over vent Fluid Balance (Past 24 Hours): I= O= Net Intake & Output 06/28/18 06/29/18 06/30/18 07/01/18 06:59 06:59 06:59 06:59 Intake Total 433 Output Total 2300 125 Balance -1867 -125 Weight 75.3 kg Intake: IV Fluids 433 NS (0.9%) 323 Output: Eller 2300 125 Labs: Laboratory Results - last 24 hr 06/29/18 06/29/18 06/29/18 23:15 23:15 23:15 WBC 20.6 H RBC 5.05 Hgb 14.4 Hct 43 MCV 85 MCH 29 MCHC 34 RDW 14 Plt Count 407 MPV 9.4 Neut % (Auto) 78.5 Lymph % (Auto) 15.8 L [place] % (Auto) 4.9 Eos % (Auto) 0.6 Baso % (Auto) 0.2 Absolute Neuts (auto) 16.1 H Absolute Lymphs (auto) 3.3 Absolute Monos (auto) 1.0 H Absolute Eos (auto) 0.1 Absolute Basos (auto) 0 Absolute Nucleated RBC 0 Nucleated RBC % 0.1 INR (Anticoag Therapy) 0.90 APTT 29.7 Patient Temperature ABG pH ABG pH (Temp Correct) ABG pCO2 ABG pCO2 (Temp Corrct ABG pO2 ABG pO2 (Temp Correct ABG HCO3 ABG O2 Saturation ABG Base Excess Respiration Rate Ventilator Type Vent Mode Inspiratory Time PEEP Pressure Support Pressure Control EPAP IPAP BiPAP Sodium Potassium Chloride Carbon Dioxide Anion Gap BUN Creatinine Est GFR ( Amer) Est GFR (Non-Af Amer) BUN/Creatinine Ratio Glucose Lactic Acid Calcium Total Bilirubin AST ALT Alkaline Phosphatase Troponin I Total Protein Albumin Globulin Albumin/Globulin Ratio Triglycerides Cholesterol LDL Cholesterol LDL Cholesterol Direct HDL Cholesterol Urine Color Straw Urine Appearance Clear Urine pH 7.0 Ur Specific [place] 1.011 Urine Protein 2+(100 mg/dl) A Urine Ketones Trace A Urine Blood 2+ A Urine Nitrate Negative Urine Bilirubin Negative Urine Urobilinogen Negative Ur Leukocyte Esterase Negative Urine WBC (Auto) Trace(0-5/hpf) Urine RBC (Auto) 3+(>10/hpf) A Urine Bacteria Absent Urine Glucose 2+(150 mg/dl) A Blood Type Antibody Screen Crossmatch 06/29/18 06/29/18 06/29/18 23:15 23:15 23:15 WBC RBC Hgb Hct MCV MCH MCHC RDW Plt Count MPV Neut % (Auto) Lymph % (Auto) [place] % (Auto) Eos % (Auto) Baso % (Auto) Absolute Neuts (auto) Absolute Lymphs (auto) Absolute Monos (auto) Absolute Eos (auto) Absolute Basos (auto) Absolute Nucleated RBC Nucleated RBC % INR (Anticoag Therapy) APTT Patient Temperature ABG pH ABG pH (Temp Correct) ABG pCO2 ABG pCO2 (Temp Corrct ABG pO2 ABG pO2 (Temp Correct ABG HCO3 ABG O2 Saturation ABG Base Excess Respiration Rate Ventilator Type Vent Mode Inspiratory Time PEEP Pressure Support Pressure Control EPAP IPAP BiPAP Sodium 134 L Potassium TNP Chloride 99 L Carbon Dioxide 20 L Anion Gap 15 H BUN 15 Creatinine 0.79 Est GFR ( Amer) 92.1 Est GFR (Non-Af Amer) 76.1 BUN/Creatinine Ratio 19.0 Glucose 206 H Lactic Acid 5.8 H* Calcium 8.8 Total Bilirubin 0.30 AST TNP ALT 10 Alkaline Phosphatase 100 Troponin I 0.01 Total Protein 8.2 Albumin 4.3 Globulin 3.9 Albumin/Globulin Ratio 1.1 Triglycerides 677 Cholesterol 236 LDL Cholesterol LDL Cholesterol Direct 114 HDL Cholesterol 34.0 Urine Color Urine Appearance Urine pH Ur Specific [place] Urine Protein Urine Ketones Urine Blood Urine Nitrate Urine Bilirubin Urine Urobilinogen Ur Leukocyte Esterase Urine WBC (Auto) Urine RBC (Auto) Urine Bacteria Urine Glucose Blood Type O Positive Antibody Screen Negative Crossmatch See Detail 06/30/18 06/30/18 06/30/18 00:05 01:03 05:00 WBC 23.4 H RBC 4.83 Hgb 13.8 Hct 41 MCV 84 MCH 29 MCHC 34 RDW 14 Plt Count 328 MPV 8.4 Neut % (Auto) 87.0 H Lymph % (Auto) 6.9 L [place] % (Auto) 5.8 Eos % (Auto) 0.1 Baso % (Auto) 0.2 Absolute Neuts (auto) 20.4 H Absolute Lymphs (auto) 1.6 Absolute Monos (auto) 1.3 H Absolute Eos (auto) 0 Absolute Basos (auto) 0 Absolute Nucleated RBC 0 Nucleated RBC % 0 INR (Anticoag Therapy) APTT Patient Temperature Not Reportable ABG pH 7.40 ABG pH (Temp Correct) Not Reportable ABG pCO2 32 L ABG pCO2 (Temp Corrct Not Reportable ABG pO2 201 H ABG pO2 (Temp Correct Not Reportable ABG HCO3 21.8 ABG O2 Saturation 98.0 ABG Base Excess -4.0 L Respiration Rate 20 Ventilator Type 500 Vent Mode Cmv Inspiratory Time Not Reportable PEEP 5 Pressure Support Not Reportable Pressure Control Not Reportable EPAP Not Reportable IPAP Not Reportable BiPAP Not Reportable Sodium Potassium 3.3 L Chloride Carbon Dioxide Anion Gap BUN Creatinine Est GFR ( Amer) Est GFR (Non-Af Amer) BUN/Creatinine Ratio Glucose Lactic Acid Calcium Total Bilirubin AST 19 ALT Alkaline Phosphatase Troponin I Total Protein Albumin Globulin Albumin/Globulin Ratio Triglycerides Cholesterol LDL Cholesterol LDL Cholesterol Direct HDL Cholesterol Urine Color Urine Appearance Urine pH Ur Specific [place] Urine Protein Urine Ketones Urine Blood Urine Nitrate Urine Bilirubin Urine Urobilinogen Ur Leukocyte Esterase Urine WBC (Auto) Urine RBC (Auto) Urine Bacteria Urine Glucose Blood Type Antibody Screen Crossmatch 06/30/18 06/30/18 05:00 05:00 WBC RBC Hgb Hct MCV MCH MCHC RDW Plt Count MPV Neut % (Auto) Lymph % (Auto) [place] % (Auto) Eos % (Auto) Baso % (Auto) Absolute Neuts (auto) Absolute Lymphs (auto) Absolute Monos (auto) Absolute Eos (auto) Absolute Basos (auto) Absolute Nucleated RBC Nucleated RBC % INR (Anticoag Therapy) APTT Patient Temperature ABG pH ABG pH (Temp Correct) ABG pCO2 ABG pCO2 (Temp Corrct ABG pO2 ABG pO2 (Temp Correct ABG HCO3 ABG O2 Saturation ABG Base Excess Respiration Rate Ventilator Type Vent Mode Inspiratory Time PEEP Pressure Support Pressure Control EPAP IPAP BiPAP Sodium 136 Potassium 3.2 L Chloride 103 Carbon Dioxide 19 L Anion Gap 14 H BUN 12 Creatinine 0.74 Est GFR ( Amer) 99.3 Est GFR (Non-Af Amer) 82.1 BUN/Creatinine Ratio 16.2 Glucose 164 H Lactic Acid 3.5 H* Calcium 8.7 Total Bilirubin AST ALT Alkaline Phosphatase Troponin I Total Protein Albumin Globulin Albumin/Globulin Ratio Triglycerides Cholesterol LDL Cholesterol LDL Cholesterol Direct HDL Cholesterol Urine Color Urine Appearance Urine pH Ur Specific [place] Urine Protein Urine Ketones Urine Blood Urine Nitrate Urine Bilirubin Urine Urobilinogen Ur Leukocyte Esterase Urine WBC (Auto) Urine RBC (Auto) Urine Bacteria Urine Glucose Blood Type Antibody Screen Crossmatch Studies: 06/30/18 CTA Head IMPRESSION: No aneurysmal dilatation or dissection of the carotid arteries or vertebral artery. Large parenchymal hemorrhage in the left frontal lobe extending to the left occipital lobe. Moderate degree of central dural hematoma is noted over the left frontal area. Midline shift towards the right of approximately 10 mm is noted. There is likely intraventricular hemorrhage noted. Impression: 52F with admitted with catastrophic ICH. Now Diabetes insipidus. Plan: Neuro - ICH - seen by neurosurgery - poor prognosis - neurochecks - serial head ct - keep serum sodium > 145 - does not meet criteria for brain at this time - spoke to ex- at bedside who said daughter is decision maker and will come to the hospital at approximately 7pm tonight CV - htn - very labile bp - cardene on breifly but patient now hypotensive - 2L LR Bolus - check tte - keep sbp < 140 Pulm - respiratory failure - 2/2 ICH - wean vent as tolerated ID - - febrile and elevated wbc - suspect reactive to ich - hold off on abx for now GI - npo for now Renal - DI - ddavp 2mcg sc bid - monitor i/o Heme - monitor cbc Endo - check fs, niss Lines - piv, eller PPx - gi/dvt DNR Critical Care Time: 50 mins
[2018-06-30] MEDS ORDERED: Desmopressin Acetate* 4 MCG/ML 1 ML SDV SUBCUT SCH (10:00)
--- NOTE | 2018-06-30 10:08 | PN ---
Progress Note - Progress Note Date of Service: 06/30/18 Note: Patient's bp dropped into the 60s. IV hydration started. I called the patient's daughter and discussed central line placement. She states that since the central line and vasopressors are unlikely to change the overall prognosis she declines central line. Will continue IV fluids and start low dose levophed peripherally for now. The patient remains DNR.
[2018-06-30] MEDS ORDERED: Norepinephrine 16MCG/ML IVPRE* 4,000 MCG/250 ML BAG IV ONE (10:11)
[2018-06-30] MEDS ORDERED: Norepinephrine 16MCG/ML IVPRE* 4,000 MCG/250 ML BAG IV SCH (11:00)
[2018-06-30] MEDS ORDERED: levETIRAcetam 500 MG IVPREMIX* 500 MG/100 ML BAG IV SCH (11:00)
[2018-06-30 11:57] LABS: EGFR Non-African American 66.3 (>60)
--- NOTE | 2018-06-30 13:20 | OP ---
Operative Report - Blank - Operative Report Date of Operation: 06/30/18 Note: Central Venous Catheter (CVC, Central Line) Placement Date: 06/30/18 Indication: Hemodynamic monitoring/Intravenous access Attending: Igor Mckay time-out was completed verifying correct patient, procedure, site, positioning , and special equipment if applicable. The patient was placed in a dependent position appropriate for central line placement based on the vein to be cannulated. The patients right neck was prepped and draped in sterile fashion. 1% Lidocaine was used to anesthetize the surrounding skin area. A triple lumen 7 -Slovenian catheter was introduced into the the internal jugular vein> using the Seldinger technique and under ultrasound guidance. The catheter was threaded smoothly over the guide wire and appropriate blood return was obtained. Each lumen of the catheter was evacuated of air and flushed with sterile saline. The catheter was then sutured in place to the skin and a sterile dressing applied. Perfusion to the extremity distal to the point of catheter insertion was checked and found to be adequate. Estimated Blood Loss: none The patient tolerated the procedure well and there were no complications.
--- NOTE | 2018-06-30 13:21 | OP ---
Operative Report - Blank - Operative Report Date of Operation: 06/30/18 Note: ARTERIAL LINE (A-Line) PLACEMENT Date: 06/30/18 Indication: Hemodynamic monitoring Attending: Igor Mckay time-out was completed verifying correct patient, procedure, site, positioning , and special equipment if applicable. Allens test was performed to ensure adequate perfusion. The patients left wrist was prepped and draped in sterile fashion. 1% Lidocaine was used to anesthetize the area. A 20G Arrow arterial line was introduced into the radial artery. The catheter was threaded over the guide wire and the needle was removed with appropriate pulsatile blood return. The catheter was then sutured in place to the skin and a sterile dressing applied. Perfusion to the extremity distal to the point of catheter insertion was checked and found to be adequate. Estimated Blood Loss: minimal The patient tolerated the procedure well and there were no complications.
[2018-06-30] MEDS ORDERED: Magnesium Sulfate 2 GM IV* 2 GM/50 ML BAG IVPB ONE (13:48)
[2018-06-30] MEDS ORDERED: KCL 20 MEQ/100 ML IVPREMIX* 20 MEQ/100 ML BAG IV SCH (14:00)
--- NOTE | 2018-06-30 14:28 | RAD ---
Indication: Brain confirmation. Brain study was performed after intravenous injection of 20.2 mCi of technetium 99 and DTPA. There is no evidence of any intracranial circulation. There is external carotid artery circulation noted. Findings are confirmatory of brain . IMPRESSION: No flow is noted in the intracranial vessels consistent with brain .
--- NOTE | 2018-06-30 14:31 | RAD ---
Indication: Central line placement. Single frontal view of the chest performed at 1417 hours was reviewed. Comparison is made with previous exam dated June 30, 2018. No mediastinal shift is noted. Heart is of normal size and configuration. Lung reyes appear clear. Endotracheal tube, central line and nasogastric tube are in place. Central line tip is in the superior vena cava. No pneumothorax is noted. IMPRESSION: NO ACTIVE CARDIOPULMONARY DISEASE IS NOTED. CENTRAL LINE IS NOTED IN THE SUPERIOR VENA CAVA. NO PNEUMOTHORAX IS NOTED.
[2018-06-30 15:50] LABS: ABS Basophils 0 10^3/ul (0-0.2); ABS Eosinophils 0 10^3/ul (0-0.6); ABS Lymphocytes 1.3 10^3/ul (1.0-4.8); ABS Monocytes 1.2 10^3/ul (0-0.8); ABS Neutrophils 13.8 10^3/ul (1.5-7.7); ABS Nucleated RBC 0 10^3/ul; Eosinophil % 0 % (0-6); Hematocrit 37 % (35-47); Hemoglobin 12.7 g/dl (12.0-16.0); Lymphocyte % 8.1 % (25-47); Mean Corpuscular HGB Conc 34 g/dl (31-36); Mean Corpuscular Hemoglobin 29 pg (27-31); Mean Corpuscular Volume 84 fL (80-97); Mean Platelet Volume 8.3 um3 (7.4-10.4); Nucleated Red Blood Cells % 0; Platelet Count 309 10^3/ul (150-450); Red Blood Count 4.44 10^6/ul (4.00-5.40); Red Cell Distribution Width 14 % (10.5-15); White Blood Count 16.3 10^3/ul (3.5-10.8)
--- NOTE | 2018-06-30 15:52 | PN ---
Progress Note - Progress Note Date of Service: 06/30/18 Note: Brain Exam: I examined the patient who was found to have a GCS of 3. This is due to a intracerebral hemorrhage seen on CT scan and is irreversible. The patient was not receiving any sedation or paralytics. Her temperature was > 97 degrees F. She does not have any alternative explanations for her exam. Her pupils were fixed and dilated. She did not have a corneal reflex. She did not have a cough or gag reflex. Cold coloric testing was negative. Apnea test was not performed due to the fact that she was requiring levophed for bp support. A second exam was performed by Dr. Odom from neurology. A nuclear medicine flow study was performed as a confirmatory test and the patient was declared brain on at 1424. Dawson Costa DO ICU Attending.
--- NOTE | 2018-06-30 16:02 | DS ---
Patient Name: Maty Castellanos Admission Date: 06/30/18 Discharge Date: 06/30/18 Attending Physician: Dawson Costa Primary Care Physician: None Referring Physician: None Consulting Physician(s): Dr. Odom (Neurology), Dr. Plaza (Neurosurgery) Condition on Discharge: Brain Final Diagnosis: Current Active Problems Hypertension (Acute) I10 Intracerebral hemorrhage (Acute) I61.9 Respiratory failure (Acute) J96.90 Brain (Acute) G93.82 Procedures: RIJ TLC placement 06/30/18 L Radial A line placement 06/30/18 History of Present Illness Mrs Castellanos is a 52YO female presenting via EMS from home where she was in the shower and experienced sudden onset of headache & N/V with subsequent syncope. She did rouse and was able to assist getting dressed before becoming lethargic and unresponsive. She was intubated on arrival and code perea protocol followed. CT head WO was read as parenchymal ICH with significant shift & subdural hematoma. Zacarias Plaza MD neurosurgery was consulted and offered surgery, but based on the anticipated post-op survival and substantial disability, her family opted to forego surgery and make her a DNR. She was given 12.5g mannitol IV, loaded with 1g levetiracetam, & PRN labetalol for HTN. Laboratory/Data None Hospital Course The patient was admitted to the ICU. She rapidly deteriorated. Exams by the dealer sales manager and neurology as well as a nuclear medicine brain flow study were all consistent with brain and was declared on 06/30/18 at 1425. At that time organ donation services approached the family who agreed to procede with procurement. Discharge Medications None Discharge Instructions None Follow up Appointments None Code Status
[2018-06-30 16:09] LABS: EGFR Non-African American 77.3 (>60)
[2018-06-30] MEDS ORDERED: Sodium Phosphate INJ* 15 MMOLE in NS 0.9% 250 ML* 250 ML IVPB ONE (16:20)
--- NOTE | 2018-06-30 16:59 | OP ---
Operative Report - Blank - Operative Report Date of Operation: 06/30/18 Note: ICU BRONCHOSCOPY PROCEDURE NOTE * PREPARER MAKING DEPARTMENT: Igor * ANESTHETIC: None * PROCEDURE: Flexible bronchoscopy * Position: Supine * Intubation site: ETT * INDICATION: Pre-organ donation * FINDINGS: * Trachea: Normal * Main isael: Sharp * Left Mainstem Bronchus: Normal * SEEMA: Normal * LLL: Normal * Right Mainstem Bronchus: Normal * RUL: Normal * Rt bronchus intermedius Normal * RML: Normal * RLL: Normal * SPECIMENS: BAL: RML * COMPLICATIONS: None * IMPRESSION: Bronchoscopy: Normal * PLAN: Sent BAL for C&S/gram
[2018-06-30 18:24] VITALS: BP 101/71
--- NOTE | 2018-06-30 18:24 | CONS ---
NEUROLOGY CONSULT REPORT: DATE OF CONSULT: 06/30/18 REASON FOR CONSULT: Intraparenchymal hemorrhage; Confirmation of brain . HISTORY OF PRESENT ILLNESS: The patient is a 52-year-old woman who experienced a sudden onset of headache and nausea and vomiting late last night and subsequently lost consciousness. Seems she regained consciousness after a few minutes, was able to be assisted to getting dressed and then again became lethargic and unresponsive. EMS arrive and intubated her on the field and was brought to the hospital earlier this morning and gavin taylor was called. Upon workup, CT of the head showed large intraparenchymal hemorrhage with herniation as well as subdural hematoma. The patient has been made DNR by her family given the extent of her hemorrhage. The patient's examination has been consistent with brain by the ICU physician and a nuclear test also did not show any cerebral blood flow. Neurology was consulted for confirmation of brain . At the time of my exam the patient was not on any sedation or paralytic but was on pressors. Apnea test could not be performed due to instability of her blood pressure. PAST MEDICAL HISTORY: Headache and hypertension. PAST SURGICAL HISTORY: Unknown. MEDICATIONS: The patient is currently on: 1. Tylenol 650 mg p.o. q.6 hours p.r.n. 2. She is on desmopressin. 3. She is on Keppra 500 mg q.12 hours. 4. She is on potassium chloride. 5. She is on Levophed 5 mcg/min. The apnea test cannot be done due to her blood pressure instability. FAMILY HISTORY: Unknown as she is adopted. SOCIAL HISTORY: The patient is a former smoker. Does not use drugs and rarely drinks alcohol. REVIEW OF SYSTEMS: Cannot be obtained. PHYSICAL EXAM: Temperature has been 96.1, blood pressure 111/75 on pressors. She is intubated and on mechanical ventilation. The pupils are dilated at 4 mm , symmetric and nonreactive to light. Corneal reflex is absent. Oculocephalic reflex is absent. Cough reflex is absent. Gag reflex is absent. The patient does not respond to noxious stimuli. The cold caloric test is also negative. LABORATORY DATA: PH 7.4, sodium 139, potassium 3, BUN 11, creatinine 0.89, calcium 8.1, magnesium 1.5. IMAGING: The brain scan nuclear medicine read as no flow in the intracranial vessels consistent with brain . A CT of the head and neck showed no aneurysmal dilation or dissection of the carotid arteries or vertebral artery. Large parenchymal hemorrhage in the left frontal lobe, extending to the left occipital lobe. Moderate degree of central dural hematoma is noted over the left frontal area. Midline shift toward the right of approximately 10 mm is noted. There is likely intraventricular hemorrhage noted. ASSESSMENT AND PLAN: The patient is a 52-year-old female with history of intraparenchymal hemorrhage and unfortunately my exam is currently consistent with brain , which is also confirmed by ancillary test of brain perfusion scan as well. The apnea test cannot be tolerated due to lability of the blood pressure. The extent of pathology of her hemorrhage and brain midline herniation explains the findings; there is no other plausible explanation. This was reviewed with Dr. Costa, the ICU physician. [id number]/[facility] #: [id number] [facility]
[2018-07-01] MEDS ORDERED: Potassium Chloride LIQUID* 20 MEQ PACKET PO ONE (13:48)
== END 2018-06-30 14:25 | disposition expired | DRG 64 ==
LOC: EDBD → ED 22:44 → ICU 06-30 01:27 → MERGE 06-30 01:27
PROVIDERS: ADMIT Hospitalist; ATTEND Internal Medicine
PROC: 0BH17EZ Insertion of Endotracheal Airway into Trachea, Via Natural or Artificial Opening (ICD-10-PCS; principal; 2018-06-30)
PROC: 0BJ08ZZ Inspection of Tracheobronchial Tree, Via Natural or Artificial Opening Endoscopic (ICD-10-PCS; 2018-06-30)
DX: I62.01 Nontraumatic acute subdural hemorrhage (principal); G93.5 Compression of brain; J96.00 Acute respiratory failure, unspecified whether with hypoxia or hypercapnia; E23.2 Diabetes insipidus; I61.1 Nontraumatic intracerebral hemorrhage in hemisphere, cortical; R40.2433 Glasgow coma scale score 3-8, at hospital admission; I10 Essential (primary) hypertension; Z66 Do not resuscitate; R51 Headache; Z87.891 Personal history of nicotine dependence
CPT/HCPCS: 36415; 70450; 70496; 70498; 71045; 78606; 80048; 80053; 80061; 80076; 81003; 81015; 82803; 83605; 83721; 83735; 84100; 84484; 85025; 85610; 85730; 86850; 86900; 86901; 86922; 87086; 87641; 93005; 94003; 99285; A9270-GY; A9539; J0330; J0360; J2150; J2597; J2704; J3475; J3480; Q9967

== ENCOUNTER 2018-06-30 14:24 | Day surgery (SDC) | payer OTHER ==
[2018-06-30] MEDS ORDERED: Sodium Phosphate INJ* 15 MMOLE in NS 0.9% 250 ML* 250 ML IVPB ONE (17:12)
[2018-06-30] MEDS ORDERED: Insulin REGULAR(*) 1 UNITS UNIT IV PUSH ONE (17:34)
[2018-06-30] MEDS ORDERED: methylPREDNISolone 125 MG* 2 ML VIAL IV ONE (17:34)
[2018-06-30] MEDS ORDERED: Dextrose 50% Syringe 50 ML* 25 GM/50 ML SYRINGE IV PUSH PRN (17:35)
[2018-06-30] MEDS ORDERED: Piperacillin/Tazobac ADVAN(*) 3.375 GM in NS 0.9% 100 ML* 100 ML IVPB SCH (18:00)
[2018-06-30] MEDS ORDERED: Enoxaparin(*) 40 MG/0.4 ML SYR SUBCUT SCH (18:00)
[2018-06-30] MEDS ORDERED: D5LR 1000 ML BAG* 1,000 ML IV SCH (18:00)
[2018-06-30] MEDS: Albuterol 2.5 MG/3 ML NEB.SOL* (0.083%) INH SCH ×2 (18:15→22:10)
[2018-06-30] MEDS: Levothyroxine INJ* 100 MCG in D5W 250 ML BAG* 250 ML IV SCH (18:28)
--- NOTE | 2018-06-30 18:30 | RAD ---
Indication: Preorgan donation. CT of the chest, abdomen and pelvis was performed without oral or IV contrast administration. Coronal and sagittal reconstructed images were obtained. Endotracheal tube is in place. Inferior thyroid lobes are unremarkable. No mediastinal or hilar adenopathy is noted. The heart demonstrates no pericardial effusion. The trachea and major bronchi appear patent. The lung reyes demonstrate some atelectasis in the lung bases. No definite pneumonia is identified. The liver is normal in size. No focal lesions or intrahepatic ductal dilatation is noted. The gallbladder demonstrates a phrygian cap with contrast. The pancreas demonstrates no mass or pancreatic ductal dilatation. The spleen is normal in size. No adrenal lesions are noted. The kidneys demonstrate no hydronephrosis. No retroperitoneal lymphadenopathy is noted. No dilated loops of bowel are noted. Aorta and inferior vena cava are unremarkable. CT of the pelvis and straight uterus to be unremarkable. There appears to be a large right ovarian cyst measuring up to 6.0 x 3.5 cm. No free fluid is noted. The urinary bladder is unremarkable. IMPRESSION: Atelectasis of the left lung base. No pericardial effusion is noted. Solid organs are grossly unremarkable. Right ovarian cyst measuring 6.0 x 3.5 cm is noted.
[2018-06-30 19:13] LABS: Urine Appearance Clear; Urine Blood 2+ (Negative); Urine Color Yellow; Urine Ketones Negative (Negative); Urine Protein Negative (Negative); Urine Red Blood Cell 3+(>10/hpf) (Absent); Urine Specific Gravity 1.014 (1.010-1.030); Urine Urobilinogen Negative (Negative); Urine White Blood Cell 2+(11-20/hpf) (Absent)
--- NOTE | 2018-06-30 19:47 | RAD ---
Indication: Organ harvesting. Single frontal view of the chest performed at 1909 hours was reviewed. Comparison is made with previous exam dated June 30, 2018. No mediastinal shift is noted. Heart is of normal size and configuration. Lung reyes appear clear. Endotracheal tube is in place. Central line is in place. No changes noted since exam done earlier the same day. IMPRESSION: NO ACTIVE CARDIOPULMONARY DISEASE IS NOTED.
[2018-06-30] MEDS: ZOSYN 3.375 GM Q6H - Intermittant 30 min Infusion IVPB SCH ×2 (19:50)
[2018-06-30] MEDS: KCL 20 MEQ/100 ML IVPREMIX* 20 MEQ/100 ML BAG IV SCH ×2 (19:50→22:00)
[2018-06-30] MEDS ORDERED: LEVOTHYROXINE IV ONE (20:15)
[2018-06-30] MEDS ORDERED: [UNRECOGNIZED DRUG - OTHER] IV ONE (20:15)
[2018-06-30] MEDS: Desmopressin Acetate* 2 MCG in NS 0.9% 50 ML* 50 ML IVPB SCH (20:43)
[2018-06-30] MEDS: LR @ 40 MLS/HR IV SCH (21:00)
[2018-06-30] MEDS: Norepinephrine 16MCG/ML IVPRE* 4,000 MCG/250 ML BAG IV SCH (21:17)
[2018-06-30 21:47] LABS: ABS Basophils 0 10^3/ul (0-0.2); ABS Eosinophils 0 10^3/ul (0-0.6); ABS Lymphocytes 0.7 10^3/ul (1.0-4.8); ABS Monocytes 1.1 10^3/ul (0-0.8); ABS Neutrophils 16.5 10^3/ul (1.5-7.7); ABS Nucleated RBC 0 10^3/ul; Eosinophil % 0.1 % (0-6); Hematocrit 36 % (35-47); Hemoglobin 11.9 g/dl (12.0-16.0); Mean Corpuscular HGB Conc 33 g/dl (31-36); Mean Corpuscular Hemoglobin 28 pg (27-31); Mean Corpuscular Volume 86 fL (80-97); Mean Platelet Volume 8.3 um3 (7.4-10.4); Nucleated Red Blood Cells % 0.1; Platelet Count 278 10^3/ul (150-450); Red Cell Distribution Width 14 % (10.5-15); White Blood Count 18.3 10^3/ul (3.5-10.8)
[2018-06-30 21:54] LABS: INR 1.05 (0.77-1.02)
[2018-06-30 22:02] LABS: EGFR Non-African American 92.1 (>60)
--- NOTE | 2018-06-30 23:00 | PN ---
Progress Note - Progress Note Date of Service: 06/30/18 SOAP: Subjective: [] Patient was seen earlier this am. Intubated. No sedation. Objective: []VSS Does not open eyes to pain, (I), Motor No responce to painful stimuli. No corneal, No gag, No cough reflexes. Assessment: []52 yo f ICH, SDH Plan: []Unresponsive. Brain stem reflexes absent. Patient underwent official brain exam later by ICU team and neurology. Family aware of patient's condition. Umang Plaza MD
[2018-07-01] MEDS: ZOSYN 3.375 GM Q6H - Intermittant 30 min Infusion IVPB SCH ×10 (00:59→23:44)
[2018-07-01] MEDS: Levothyroxine INJ* 100 MCG in D5W 250 ML BAG* 250 ML IV SCH (02:17)
[2018-07-01] MEDS: Albuterol 2.5 MG/3 ML NEB.SOL* (0.083%) INH SCH ×6 (02:26→23:16)
[2018-07-01 03:13] LABS: Hematocrit 37 % (35-47); Hemoglobin 12.2 g/dl (12.0-16.0); Mean Corpuscular HGB Conc 33 g/dl (31-36); Mean Corpuscular Hemoglobin 29 pg (27-31); Mean Corpuscular Volume 86 fL (80-97); Mean Platelet Volume 8.4 um3 (7.4-10.4); Platelet Count 297 10^3/ul (150-450); Red Blood Count 4.29 10^6/ul (4.00-5.40); Red Cell Distribution Width 14 % (10.5-15); White Blood Count 21.8 10^3/ul (3.5-10.8)
[2018-07-01 03:23] LABS: INR 1.02 (0.77-1.02)
[2018-07-01 03:31] LABS: EGFR Non-African American 83.4 (>60)
[2018-07-01 03:41] LABS: ABS Basophils 0 10^3/ul (0-0.2); ABS Eosinophils 0 10^3/ul (0-0.6); ABS Lymphocytes 0.4 10^3/ul (1.0-4.8); ABS Monocytes 0.2 10^3/ul (0-0.8); ABS Neutrophils 21.2 10^3/ul (1.5-7.7); ABS Nucleated RBC 0 10^3/ul; Eosinophil % 0 % (0-6); Lymphocyte % 1.8 % (25-47); Nucleated Red Blood Cells % 0
[2018-07-01] MEDS ORDERED: Potassium Chlor TAB* 20 MEQ TAB.ER PO PRN (05:00)
[2018-07-01] MEDS ORDERED: CALCIUM GLUCONATE* 1 GM/10 ML VIAL (in Pyxis) IV PRN (05:00)
[2018-07-01] MEDS ORDERED: Potassium Phosphate IV* 3 MMOLE/ML 5 ML IVPB IV PRN (05:00)
[2018-07-01] MEDS ORDERED: Magnesium Sulfate IV* 0.5 GM/ML 2 ML VIAL (1 GM) IVPB PRN (05:00)
[2018-07-01] MEDS ORDERED: Sodium Phosphate INJ* 3 MMOLE/ML 5 ML IVPB PRN (05:00)
[2018-07-01] MEDS: KCL 20 MEQ/100 ML IVPREMIX* 100 ML BAG IV PRN ×2 (05:14→06:33)
[2018-07-01] MEDS: Desmopressin Acetate* 2 MCG in NS 0.9% 50 ML* 50 ML IVPB SCH ×3 (05:15→13:39)
[2018-07-01] MEDS: Insulin LISPRO* 1 UNITS UNIT SUBCUT SCH ×5 (05:17→22:08)
[2018-07-01] MEDS: Levothyroxine INJ* 200 MCG in D5W 500 ML BAG* 500 ML IV SCH ×4 (05:52→20:37)
[2018-07-01] MEDS ORDERED: ICU Lab Reminder 1 NOTE MISC FOLLOW UP SCH (07:00)
--- NOTE | 2018-07-01 07:35 | RAD ---
INDICATION: The patient is status post "lung recruitment" COMPARISON: Most recent comparison chest x-rays dated June 30, 2018 TECHNIQUE: Single AP portable view of the chest was obtained. FINDINGS: Image quality is compromised due to the relative inferiority of a portable chest x-ray. The right neck central line, endotracheal tube and gastric tube are appropriately positioned. The heart and mediastinum exhibit normal size and contour. The lungs are grossly clear. There is no evidence of a large pleural effusion. Visualized bones are normal for the patient's age. IMPRESSION: Appropriately positioned lines and tubes without acute thoracic abnormality.
[2018-07-01] MEDS: Norepinephrine 16MCG/ML IVPRE* 4,000 MCG/250 ML BAG IV SCH (07:46)
[2018-07-01 09:25] LABS: Hematocrit 34 % (35-47); Hemoglobin 11.2 g/dl (12.0-16.0); Mean Corpuscular HGB Conc 33 g/dl (31-36); Mean Corpuscular Hemoglobin 29 pg (27-31); Mean Corpuscular Volume 86 fL (80-97); Mean Platelet Volume 8.4 um3 (7.4-10.4); Platelet Count 277 10^3/ul (150-450); Red Blood Count 3.92 10^6/ul (4.00-5.40); Red Cell Distribution Width 15 % (10.5-15); White Blood Count 24.5 10^3/ul (3.5-10.8)
[2018-07-01 09:28] LABS: ABS Basophils 0 10^3/ul (0-0.2); ABS Eosinophils 0 10^3/ul (0-0.6); ABS Lymphocytes 0.4 10^3/ul (1.0-4.8); ABS Monocytes 0.6 10^3/ul (0-0.8); ABS Neutrophils 23.4 10^3/ul (1.5-7.7); ABS Nucleated RBC 0 10^3/ul; Eosinophil % 0 % (0-6); Lymphocyte % 1.8 % (25-47); Nucleated Red Blood Cells % 0
[2018-07-01] MEDS: LR @ 40 MLS/HR IV SCH ×2 (09:29→22:54)
[2018-07-01] MEDS ORDERED: Lidocaine 1%* 5 ML VIAL ONE (09:43)
[2018-07-01] MEDS ORDERED: Heparin 2 UNITS/ML IVPREMIX* 2,000 ML IV ONE (09:43)
[2018-07-01] MEDS ORDERED: Iohexol 350 (CONTRAST) 200 ML MDV IV ONE (09:46)
[2018-07-01 09:50] LABS: EGFR Non-African American 90.5 (>60)
[2018-07-01] MEDS ORDERED: NS 0.9% 1000 ML* 1,000 ML IV SCH (11:00)
--- NOTE | 2018-07-01 13:02 | RAD ---
Indication: Organ donation assessment. Comparison: July 01, 2018 0100 hours. Technique: Upright AP 1233 hours Report: Endotracheal tube tip 6 cm above the Jodi. Nasogastric tube tip at level of the gastroduodenal junction. RIGHT internal jugular central venous catheter tip is at the level of the superior vena cava at the border with the RIGHT atrium. Grossly clear lungs and pleural spaces. Negative for pneumothorax. The heart, pulmonary vasculature, and mediastinal contours are unremarkable. 3.8 cm transverse aortic knob width. Cephalocaudal length of the RIGHT lung is 17 cm in cephalocaudal length of the LEFT lung is 20 cm. Transverse width of the RIGHT diaphragm is 12 cm and LEFT diaphragm is 12 cm. IMPRESSION: #. No acute cardiopulmonary process evident. # Organ donation assessment measurements as noted..
[2018-07-01 15:14] LABS: Hematocrit 32 % (35-47); Hemoglobin 10.6 g/dl (12.0-16.0); Mean Corpuscular HGB Conc 33 g/dl (31-36); Mean Corpuscular Hemoglobin 29 pg (27-31); Mean Corpuscular Volume 86 fL (80-97); Mean Platelet Volume 8.4 um3 (7.4-10.4); Platelet Count 244 10^3/ul (150-450); Red Cell Distribution Width 15 % (10.5-15)
[2018-07-01 15:15] LABS: ABS Basophils 0 10^3/ul (0-0.2); ABS Eosinophils 0 10^3/ul (0-0.6); ABS Lymphocytes 0.8 10^3/ul (1.0-4.8); ABS Monocytes 1.4 10^3/ul (0-0.8); ABS Neutrophils 24.8 10^3/ul (1.5-7.7); ABS Nucleated RBC 0 10^3/ul
[2018-07-01 15:16] LABS: Eosinophil % 0 % (0-6); Lymphocyte % 2.9 % (25-47); Nucleated Red Blood Cells % 0
[2018-07-01 15:22] LABS: INR 1.09 (0.77-1.02)
[2018-07-01 15:38] LABS: EGFR Non-African American 100.7 (>60)
[2018-07-01] MEDS ORDERED: Potassium Phosphate IV* 20 MMOLE in NS 0.9% 250 ML* 250 ML IVPB ONE (16:30)
--- NOTE | 2018-07-01 17:04 | CATH ---
DATE OF CATHETERIZATION: 07/01/2018 - ROOM #[id number] PROCEDURE: Right common femoral artery access, right common femoral venous access, right heart catheterization, bilateral selective coronary cineangiography, left heart catheterization, left ventriculography. HISTORY: 52-year-old woman with CVA with brain undergoing diagnostic cardiac catheterization prior to tissue donation, including heart transplantation. PROCEDURE ACCESS: Right common femoral artery, right common femoral vein sheath 6F, 7F. MEDICATIONS: Subcu Lidocaine. DIAGNOSTIC CATHETER: 6FL 4, 6FR 4, 6F pigtail, 6F [place]-Richard catheter. Resting pressures obtained with passage of the [place]-Richard catheter through the right heart chambers with fluoroscopy. RA mean 8, RV 30/8, wedge mean 10, PA 26 /13, mean 18, LV 149/15, no aortic valve gradient on pullback. ANGIOGRAPHY: Right common femoral artery sheath entry is in segment 2, there is no stenosis. Left main: The left main is normal without stenosis. LAD: The LAD is moderate. The LAD extends past the apex, it supplies a moderate diagonal branch, the LAD has minimal luminal irregularity, has no stenosis. Circumflex: The circumflex is not dominant, is moderate with a large ramus, ends with a small posterolateral. The circumflex has no stenosis. RCA: The RCA is large, dominant with a moderate PDA and posterolateral, the RCA has no stenosis. LV gram: Wall motion is normal. Estimated LVEF 55 percent, no mitral regurgitation, mild dilatation of the ascending aorta. CONCLUSION: 1. No significant obstructive coronary disease. 2. Normal LV systolic function. 3. Normal hemodynamics aside from minimally elevated right atrial mean pressure. [id number]/[facility] #: [id number] [facility]ITALMauricio
[2018-07-01 17:16] LABS: Urine Appearance Clear; Urine Blood 1+ (Negative); Urine Color Yellow; Urine Ketones Negative (Negative); Urine Protein Negative (Negative); Urine Red Blood Cell 2+(6-10/hpf) (Absent); Urine Specific Gravity 1.039 (1.010-1.030); Urine Urobilinogen Negative (Negative); Urine White Blood Cell Trace(0-5/hpf) (Absent)
[2018-07-01] MEDS ORDERED: Levothyroxine INJ* 100 MCG/5 ML VIAL IV ONE (17:34)
[2018-07-01 21:07] LABS: Hematocrit 30 % (35-47); Hemoglobin 10.1 g/dl (12.0-16.0); Mean Corpuscular HGB Conc 34 g/dl (31-36); Mean Corpuscular Hemoglobin 29 pg (27-31); Mean Corpuscular Volume 85 fL (80-97); Mean Platelet Volume 8.2 um3 (7.4-10.4); Platelet Count 239 10^3/ul (150-450); Red Blood Count 3.53 10^6/ul (4.00-5.40); Red Cell Distribution Width 15 % (10.5-15); White Blood Count 27.4 10^3/ul (3.5-10.8)
[2018-07-01 21:08] LABS: ABS Basophils 0 10^3/ul (0-0.2); ABS Eosinophils 0 10^3/ul (0-0.6); ABS Monocytes 1.6 10^3/ul (0-0.8); ABS Neutrophils 24.9 10^3/ul (1.5-7.7); ABS Nucleated RBC 0 10^3/ul; Eosinophil % 0 % (0-6); Lymphocyte % 3.5 % (25-47); Nucleated Red Blood Cells % 0
[2018-07-01 21:16] LABS: INR 1.06 (0.77-1.02)
[2018-07-01 21:32] LABS: EGFR Non-African American 108.7 (>60)
[2018-07-02] MEDS ORDERED: Desmopressin Acetate* 2 MCG in NS 0.9% 50 ML* 50 ML IVPB SCH (01:00)
[2018-07-02 01:06] LABS: EGFR Non-African American 104.6 (>60)
[2018-07-02] MEDS: Levothyroxine INJ* 200 MCG in D5W 500 ML BAG* 500 ML IV SCH (02:22)
[2018-07-02 03:20] LABS: Hematocrit 26 % (35-47); Hemoglobin 8.9 g/dl (12.0-16.0); Mean Corpuscular HGB Conc 34 g/dl (31-36); Mean Corpuscular Hemoglobin 29 pg (27-31); Mean Corpuscular Volume 84 fL (80-97); Mean Platelet Volume 8.3 um3 (7.4-10.4); Platelet Count 237 10^3/ul (150-450); Red Blood Count 3.12 10^6/ul (4.00-5.40); Red Cell Distribution Width 14 % (10.5-15); White Blood Count 27.3 10^3/ul (3.5-10.8)
[2018-07-02 03:25] LABS: ABS Basophils 0 10^3/ul (0-0.2); ABS Eosinophils 0 10^3/ul (0-0.6); ABS Neutrophils 24.2 10^3/ul (1.5-7.7); ABS Nucleated RBC 0 10^3/ul; Eosinophil % 0 % (0-6); Lymphocyte % 3.8 % (25-47); Nucleated Red Blood Cells % 0
[2018-07-02 03:28] LABS: INR 1.12 (0.77-1.02)
[2018-07-02] MEDS: Albuterol 2.5 MG/3 ML NEB.SOL* (0.083%) INH SCH ×4 (03:38→15:03)
[2018-07-02] MEDS: Insulin LISPRO* 1 UNITS UNIT SUBCUT SCH ×3 (03:48→09:54)
[2018-07-02] MEDS: NS 0.9% 1000 ML* 500 ML IV SCH ×3 (04:32→06:23)
[2018-07-02 05:20] LABS: EGFR Non-African American 95.3 (>60)
[2018-07-02] MEDS: KCL 20 MEQ/100 ML IVPREMIX* 100 ML BAG IV PRN ×4 (05:54→10:02)
[2018-07-02] MEDS: ZOSYN 3.375 GM Q6H - Intermittant 30 min Infusion IVPB SCH ×4 (05:54→11:23)
[2018-07-02] MEDS ORDERED: NS 0.9% IV ONE (06:10)
[2018-07-02] MEDS ORDERED: Magnesium Sulfate 1 GM IV* 1 GM/100 ML BAG IV ONE (06:45)
[2018-07-02] MEDS ORDERED: Levothyroxine INJ* 200 MCG in D5W 500 ML BAG* 500 ML IV SCH (08:00)
[2018-07-02 08:42] VITALS: BP 97/56
[2018-07-02 09:13] LABS: ABS Basophils 0 10^3/ul (0-0.2); ABS Eosinophils 0 10^3/ul (0-0.6); ABS Lymphocytes 0.9 10^3/ul (1.0-4.8); ABS Monocytes 1.3 10^3/ul (0-0.8); ABS Neutrophils 16.3 10^3/ul (1.5-7.7); ABS Nucleated RBC 0 10^3/ul; Eosinophil % 0.1 % (0-6); Hematocrit 24 % (35-47); Hemoglobin 8.1 g/dl (12.0-16.0); Lymphocyte % 4.7 % (25-47); Mean Corpuscular HGB Conc 33 g/dl (31-36); Mean Corpuscular Hemoglobin 29 pg (27-31); Mean Corpuscular Volume 86 fL (80-97); Mean Platelet Volume 8.4 um3 (7.4-10.4); Nucleated Red Blood Cells % 0; Platelet Count 198 10^3/ul (150-450); Red Blood Count 2.84 10^6/ul (4.00-5.40); Red Cell Distribution Width 15 % (10.5-15); White Blood Count 18.4 10^3/ul (3.5-10.8)
[2018-07-02 09:20] LABS: Urine Appearance Clear; Urine Blood 2+ (Negative); Urine Color Yellow; Urine Ketones Negative (Negative); Urine Protein Negative (Negative); Urine Red Blood Cell 3+(>10/hpf) (Absent); Urine Specific Gravity 1.027 (1.010-1.030); Urine Urobilinogen Negative (Negative); Urine White Blood Cell Trace(0-5/hpf) (Absent)
[2018-07-02 09:23] LABS: INR 1.1 (0.77-1.02)
[2018-07-02] MEDS: LR @ 40 MLS/HR IV SCH (11:27)
[2018-07-02] MEDS ORDERED: Rocuronium* 10 MG/ML VIAL ONE (13:05)
== END 2018-07-02 14:30 | disposition expired | DRG 951 ==
LOC: UNDOADMIN 14:24 → ICU 14:24 → OR 14:24 → MERGE 14:24 → EDSTATUS 15:54 → UNDODISIN 07-02 14:30 → OR 07-02 14:30
PROVIDERS: ATTEND Internal Medicine
DX: Z52.89 Donor of other specified organs or tissues (principal); Z52.4 Kidney donor; Z52.5 Cornea donor; Z52.10 Skin donor, unspecified; Z52 Donors of organs and tissues; Z52.6 Liver donor
CPT/HCPCS: 36415; 36600; 71045; 71250; 74176; 80048; 80053; 81003; 81015; 82150; 82550; 82553; 82803; 82977; 83036; 83690; 83735; 84100; 84484; 85025; 85610; 85730; 86850; 86900; 86901; 86922; 87040; 87070; 87077; 87086; 87205; 88300; 88331; 93005; 93306; 93458; 94002; 94003; 94640; C1760; C1776; C1887; J1644; J1650; J2543; J2597; J2930; J3475; J3480